=== PATIENT | male | born 1940 | race Caucasian/White ===

== ENCOUNTER → 2017-02-22 | Outpatient (CLI) | payer MEDICARE, OTHER ==
[~2017-02-22] MED LIST: MORP1CAP PO; MULT-65 PO; VITA10007 PO
== END ==
LOC: PLAB 07:23
PROVIDERS: ATTEND Urology
DX: Z85.51 Personal history of malignant neoplasm of bladder (principal)

== ENCOUNTER → 2017-02-23 | Outpatient (CLI) | payer MEDICARE, OTHER | LOC: PLAB 06:38 | PROVIDERS: ATTEND Urology | DX: Z12.5 Encounter for screening for malignant neoplasm of prostate (principal) | CPT/HCPCS: 36415; G0103 ==

== ENCOUNTER → 2017-09-09 | Outpatient (CLI) | payer MEDICARE, OTHER ==
[~2017-09-09] MED LIST changes: +PYRI100T PO; -VITA10007 PO; +VITA500T83 PO
[2017-09-09 10:33] LABS: AUTOMATED NEUTROPHIL # 2.4 TH/MM3 (1.8-7.7); BASOPHIL # 0.1 TH/MM3 (0-0.2); BASOPHIL % 3.5 % (0.0-2.0); EOSINOPHIL # 0.1 TH/MM3 (0-0.4); EOSINOPHIL % 1.6 % (0.0-4.0); HEMOGLOBIN 15.2 GM/DL (13.0-17.0); LYMPH % 31.7 % (9.0-44.0); LYMPHOCYTE # 1.4 TH/MM3 (1.0-4.8); MEAN CELL VOLUME 87.5 FL (80.0-100.0); MEAN CORPUSCULAR HEMOGLOBIN 30.9 PG (27.0-34.0); MEAN CORPUSCULAR HGB CONC 35.3 % (32.0-36.0); MEAN PLATELET VOLUME 7.3 FL (7.0-11.0); MONO % 6.5 % (0.0-8.0); MONOCYTE # 0.3 TH/MM3 (0-0.9); NEUT % 56.7 % (16.0-70.0); PLATELET COUNT 222 TH/MM3 (150-450); RED BLOOD COUNT 4.91 MIL/MM3 (4.50-5.90); RED CELL DISTRIBUTION WIDTH 13.5 % (11.6-17.2); WHITE BLOOD COUNT 4.3 TH/MM3 (4.0-11.0)
[2017-09-09 11:02] LABS: ALBUMIN 4.3 GM/DL (3.4-5.0); AST (GOT) 48 U/L (15-37); BICARBONATE 27.4 MEQ/L (21.0-32.0); BLOOD UREA NITROGEN 16 MG/DL (7-18); CALCIUM 8.9 MG/DL (8.5-10.1); CHLORIDE 108 MEQ/L (98-107); CHOLESTEROL 132 MG/DL (120-200); CREATININE 1.27 MG/DL (0.60-1.30); GLOMERULAR FILTRATION RATE 55 ML/MIN (>89); GLUCOSE,FASTING 102 MG/DL (74-99); SODIUM (NA) 142 MEQ/L (136-145)
[2017-09-09 11:08] LABS: ALKALINE PHOSPHATASE 67 U/L (45-117); ALT (GPT) 48 U/L (12-78); HDL CHOLESTEROL 50.6 MG/DL (40.0-60.0); LDL CHOLESTEROL 71 MG/DL (0-99); LDL CHOLESTEROL DIRECT 83 MG/DL (0-99); TOTAL BILIRUBIN ADULT 0.8 MG/DL (0.2-1.0); TOTAL PROTEIN 7.1 GM/DL (6.4-8.2); TRIGLYCERIDES 52 MG/DL (42-150)
== END ==
LOC: PLAB 07:00
PROVIDERS: ATTEND Family Medicine
DX: I10 Essential (primary) hypertension (principal)
CPT/HCPCS: 36415; 80053; 80061; 83721; 85025

== ENCOUNTER 2018-04-03 20:51 | Observation (INO) ==
--- NOTE | 2018-04-03 21:40 | ED ---
HPI General Chief Complaint: Arrhythmia / Palpitations Stated Complaint: Cardiac/SOB Time Seen by Provider: 04/03/18 21:28 Source: patient Mode of arrival: ambulatory Limitations: no limitations History of Present Illness HPI narrative: 78 YO M with PMH of bladder CA s/p TURBT presents to the ED for evaluation of palpitations. Onset after dinner tonight ~630 PM. The patient states that he has a strange sensation of sudden onset of agitation, fatigue and SOB. He noted that his Fitbit showed a heart rate of 160. He was unsure if the device was malfunctioning so he climbed 14 steps to his bedroom and used his blood pressure monitor. This confirmed the elevated heart rate which prompted the patient to seek evaluation. He denies headaches, dizziness, vision changes, chest pain, cough, abdominal pain, nausea, vomiting, weakness of the extremities. He denies history of blood clots. Denies recent history of immobilization. The patient denies cardiac history. He states that he has not smoked since 1997. He is followed by Dr. Griggs. Related Data Home Medications Medication Instructions Recorded Confirmed temazepam [Restoril] 15 mg PO HS 04/03/18 04/03/18 Allergies Allergy/AdvReac Type Severity Reaction Status Date / Time No Known Allergies Allergy Verified 04/03/18 21:13 Review of Systems ROS: all other systems reviewed are negative [facility] Medical History Medical History History of bladder cancer (Acute) History of melanoma (Acute) Surgical History Surgical History History of back surgery (Acute) Family History Family History Other CAD (coronary artery disease) Social History Social History Substance History: No History of Abuse Second Hand Smoke Exposure: No Smoking Status: Former smoker How Often Do You Have a Drink Containing Alcohol: Monthly or less Recent Travel in [facility] within the Last 8 Weeks: No Recent Out of Country Travel within the Last 8 Weeks: No Immunization History Tetanus Immunization: Unsure Exam Narrative Exam Narrative: GENERAL: Well-nourished, well-developed, nontoxic-appearing white male in no acute distress. SKIN: Focused skin assessment warm, diaphoretic HEAD: Atraumatic. Normocephalic. EYES: Left eye cataract. No scleral icterus. No injection or drainage. ENT: No nasal bleeding or discharge. Mucous membranes pink and moist. NECK: Trachea midline. No JVD. CARDIOVASCULAR: Regular rate and rhythm. No murmur appreciated. RESPIRATORY: No accessory muscle use. Clear to auscultation. Breath sounds equal bilaterally. GASTROINTESTINAL: Abdomen soft, non-tender, nondistended. Hepatic and splenic margins not palpable. MUSCULOSKELETAL: No obvious deformities. No clubbing. No cyanosis. No edema. NEUROLOGICAL: Awake and alert. No obvious cranial nerve deficits. Motor grossly within normal limits. Normal speech. PSYCHIATRIC: Appropriate mood and affect; insight and judgment normal. Course Initial Documented Vital Signs Temperature 98.7 F 04/03/18 21:13 Pulse Rate 160 H 04/03/18 21:13 Respiratory Rate 20 04/03/18 21:13 Blood Pressure 190/109 H 04/03/18 21:13 Pulse Oximetry 97 04/03/18 21:13 Last Documented Vital Signs Temperature 96.3 F L 04/05/18 04:00 Pulse Rate 64 04/05/18 04:02 Respiratory Rate 18 04/05/18 04:00 Blood Pressure 152/79 H 04/05/18 04:00 Pulse Oximetry 94 L 04/05/18 04:00 Medical Decision Making ELISABETH Attestation ELISABETH supervised visit: Yes Attestation: I, Dr. Ace, have reviewed the advance practice practitioner's documentation and am in agreement, met with the patient face to face, made the diagnosis, and the medical decision making was done by me. The patient was initially evaluated by Melissa, the ELISABETH. Please see their complete history and physical. *My assessment and Findings: The patient presents with a history of developing increased sensation of irritability with his family at home just after eating dinner. He reports that he checked his pulse on his foot bed and it was noted to be 160. He confirmed that it was elevated with his blood pressure monitor. He reports having shortness of breath associated with it. He denies ever having a cardiac arrhythmia previously. On arrival, the patient has a confirmed heart rate in the 150s-160s. Shortly after the patient's EKG was done , the patient converted back into a sinus rhythm. The patient's initial EKG appeared to be atrial flutter. During the course of the patient's emergency department visit, the patient's history, examination, and differential diagnosis were reviewed with the patient. The patient was placed on a teletypesetter monitor with oximetry and frequent blood pressure monitoring. The patient had IV access obtained and blood work sent for analysis. The patient's diagnostic studies were reviewed and remarkable for A CBC that is within normal limits, PT PTT within normal limits, d-dimer is 0.29 decreasing the likelihood of pulmonary embolism in this patient with no other significant risk factors. Chemistries remarkable for BUN of 21, glucose 138, initial set of cardiac enzymes are negative, BNP is 84. The patient had a chest x-ray done on arrival that shows no acute cardiopulmonary disease, borderline cardiomegaly and tortuous thoracic aorta, CT scan of the brain shows no acute intracranial abnormality, atrophy and chronic small vessel ischemic changes are noted. The patient's case including history, pertinent physical examination findings, and laboratory studies were discussed with Dr. Clark. It was agreed that the patient would be admitted to the hospitalist service. The patient's results were discussed with the patient, including the plan of care. I explained that further testing and/ or monitoring is indicated based on the patient's history, examination, and/ or laboratory findings. Therefore, I recommended admission for additional evaluation. The patient expressed understanding and was agreeable with this plan. The patient was admitted to the hospital in stable condition and sent to a bed under the care of the [facility] service. MDM Narrative Medical decision making narrative: 78 YO M with PMH of bladder CA s/p TURBT presents to the ED for evaluation of palpitations. Onset after dinner tonight ~ 630 PM. Vitals reviewed. Heart rate 160 on presentation. BP 190/109. EKG initially with rate of 157, a flutter. Once the patient was settled in the exam room heart rate in the 90s 90s, repeat EKG is sinus rhythm with occasional PVCs, LAD. BP 178/87 on recheck. The patient was administered an aspirin. CXR with no acute CP disease. Tortuous aorta and borderline cardiomegaly noted. Remaining lab work and radiological studies pending at this time. The patient is signed out to Dr. Ace at end of shift. Medical Screen Exam Complete: Yes Emergency Medical Condition: Yes Differential Diagnosis Differential Diagnosis: Dysrhythmia versus ACS versus PE versus metabolic derangement versus other Lab Data Result diagrams: 04/03/18 22:18 04/03/18 22:18 Lab Results 1204/03/18 04/03/18 Range/Units 22:18 22:18 22:18 WBC 7.7 (4.0-11.0) th/mm3 RBC 4.98 (4.50-5.90) mil/mm3 Hgb 15.5 (13.0-17.0) gm/dL Hct 44.6 (39.0-51.0) % MCV 89.6 (80.0-100.0) fL MCH 31.1 (27.0-34.0) pg MCHC 34.7 (32.0-36.0) % RDW 13.8 (11.6-17.2) % Plt Count 234 (150-450) th/mm3 MPV 7.6 (7.0-11.0) fL Neut % (Auto) 68.6 (16.0-70.0) % Lymph % (Auto) 21.9 (9.0-44.0) % Snyder % (Auto) 7.4 (0.0-8.0) % Eos % (Auto) 1.1 (0.0-4.0) % Baso % (Auto) 1.0 (0.0-2.0) % Neut # (Auto) 5.3 (1.8-7.7) th/mm3 Lymph # (Auto) 1.7 (1.0-4.8) th/mm3 Snyder # (Auto) 0.6 (0.0-0.9) th/mm3 Eos # (Auto) 0.1 (0.0-0.4) th/mm3 Baso # (Auto) 0.1 (0.0-0.2) th/mm3 WBC Differential . Differential Comment Auto diff final PT (9.8-11.6) sec INR Ratio APTT (23.4-31.7) sec D-Dimer Quant (PE/DVT) 0.29 (0.00-0.50) mg/L FEU Sodium 140 (136-145) meq/L Potassium 3.9 (3.5-5.1) meq/L Chloride 106 (98-107) meq/L Carbon Dioxide 27.4 (21.0-32.0) meq/L Anion Gap 7 (5-15) meq/L BUN 21 H (7-18) mg/dL Creatinine 1.23 (0.60-1.30) mg/dL Estimated GFR 57 L (>89) mL/min Random Glucose 138 H (74-106) mg/dL Calcium 8.5 (8.5-10.1) mg/dL Magnesium (1.5-2.5) mg/dL Total Bilirubin 0.3 (0.2-1.0) mg/dL AST 27 (15-37) U/L ALT 30 (12-78) U/L Alkaline Phosphatase 88 (45-117) U/L Troponin I Less than 0.02 L (0.02-0.05) ng/mL B-Natriuretic Peptide (0-100) pg/mL Total Protein 7.3 (6.4-8.2) g/dL Albumin 4.0 (3.4-5.0) g/dL TSH (0.358-3.740) uIU/mL 04/03/18 04/03/18 04/03/18 Range/Units 22:18 22:18 22:18 WBC (4.0-11.0) th/mm3 RBC (4.50-5.90) mil/mm3 Hgb (13.0-17.0) gm/dL Hct (39.0-51.0) % MCV (80.0-100.0) fL MCH (27.0-34.0) pg MCHC (32.0-36.0) % RDW (11.6-17.2) % Plt Count (150-450) th/mm3 MPV (7.0-11.0) fL Neut % (Auto) (16.0-70.0) % Lymph % (Auto) (9.0-44.0) % Snyder % (Auto) (0.0-8.0) % Eos % (Auto) (0.0-4.0) % Baso % (Auto) (0.0-2.0) % Neut # (Auto) (1.8-7.7) th/mm3 Lymph # (Auto) (1.0-4.8) th/mm3 Snyder # (Auto) (0.0-0.9) th/mm3 Eos # (Auto) (0.0-0.4) th/mm3 Baso # (Auto) (0.0-0.2) th/mm3 WBC Differential Differential Comment PT (9.8-11.6) sec INR Ratio APTT (23.4-31.7) sec D-Dimer Quant (PE/DVT) (0.00-0.50) mg/L FEU Sodium (136-145) meq/L Potassium (3.5-5.1) meq/L Chloride (98-107) meq/L Carbon Dioxide (21.0-32.0) meq/L Anion Gap (5-15) meq/L BUN (7-18) mg/dL Creatinine (0.60-1.30) mg/dL Estimated GFR (>89) mL/min Random Glucose (74-106) mg/dL Calcium (8.5-10.1) mg/dL Magnesium 2.1 (1.5-2.5) mg/dL Total Bilirubin (0.2-1.0) mg/dL AST (15-37) U/L ALT (12-78) U/L Alkaline Phosphatase (45-117) U/L Troponin I (0.02-0.05) ng/mL B-Natriuretic Peptide 84 (0-100) pg/mL Total Protein (6.4-8.2) g/dL Albumin (3.4-5.0) g/dL TSH 2.260 (0.358-3.740) uIU/mL 04/04/18 04/04/18 Range/Units 08:20 08:20 WBC (4.0-11.0) th/mm3 RBC (4.50-5.90) mil/mm3 Hgb (13.0-17.0) gm/dL Hct (39.0-51.0) % MCV (80.0-100.0) fL MCH (27.0-34.0) pg MCHC (32.0-36.0) % RDW (11.6-17.2) % Plt Count (150-450) th/mm3 MPV (7.0-11.0) fL Neut % (Auto) (16.0-70.0) % Lymph % (Auto) (9.0-44.0) % Snyder % (Auto) (0.0-8.0) % Eos % (Auto) (0.0-4.0) % Baso % (Auto) (0.0-2.0) % Neut # (Auto) (1.8-7.7) th/mm3 Lymph # (Auto) (1.0-4.8) th/mm3 Snyder # (Auto) (0.0-0.9) th/mm3 Eos # (Auto) (0.0-0.4) th/mm3 Baso # (Auto) (0.0-0.2) th/mm3 WBC Differential Differential Comment PT 11.4 (9.8-11.6) sec INR 1.1 Ratio APTT 27.5 (23.4-31.7) sec D-Dimer Quant (PE/DVT) (0.00-0.50) mg/L FEU Sodium (136-145) meq/L Potassium (3.5-5.1) meq/L Chloride (98-107) meq/L Carbon Dioxide (21.0-32.0) meq/L Anion Gap (5-15) meq/L BUN (7-18) mg/dL Creatinine (0.60-1.30) mg/dL Estimated GFR (>89) mL/min Random Glucose (74-106) mg/dL Calcium (8.5-10.1) mg/dL Magnesium (1.5-2.5) mg/dL Total Bilirubin (0.2-1.0) mg/dL AST (15-37) U/L ALT (12-78) U/L Alkaline Phosphatase (45-117) U/L Troponin I 0.02 (0.02-0.05) ng/mL B-Natriuretic Peptide (0-100) pg/mL Total Protein (6.4-8.2) g/dL Albumin (3.4-5.0) g/dL TSH (0.358-3.740) uIU/mL Imaging Data Radiologist's impression: Chest X-Ray 04/03/18 21:41 CONCLUSION: No acute cardiopulmonary disease demonstrated. Borderline cardiomegaly and tortuous thoracic aorta. Head CT 04/03/18 21:54 CONCLUSION: 1. No acute intracranial abnormality. 2. Atrophy and chronic small vessel ischemic change. . ECG Data Attestation: I personally reviewed and interpreted this ECG as follows: Interpretation: Rate 157, a flutter. Borderline LAD. Discharge Plan Discharge Disposition Patient Disposition: ED Admit(ED Internal Use Only) Discharge Order Discharge Orders: ED Use Only Admit Order (Routine); Ordered 04/04/18 Ordered By: Birdie Ace Discharge Details Diagnosis: Paroxysmal atrial flutter Physicians Team ED Provider: Birdie Ace ED Midlevel Provider: Melissa Hilton Primary Care Provider: Duran Griggs Attending Provider: Afia Ellington Other Providers: Alfredo Kurtz Discharge Interventions Interventions: ED Discharge Assessment Last Done: 04/04/18 05:02 Status ED Status: Left Department Discharge Information Discharge Date/Time: 04/04/18 05:03
[2018-04-03] MEDS ORDERED: Aspirin 325 MG Tablet PO ONE (21:41)
--- NOTE | 2018-04-03 22:18 | XR ---
EXAM DATE: 04/03/2018 10:13 PM EST AGE/SEX: 78 years / Male INDICATIONS: Short of breath. CLINICAL DATA: This is the patient's initial encounter. Patient reports that signs and symptoms have been present for 1 day and indicates a pain score of 0/10. MEDICAL/SURGICAL HISTORY: None. None. COMPARISON: No prior exams available for comparison. FINDINGS: No infiltrate, effusion or pneumothorax demonstrated. Heart size upper limits of normal. Thoracic aorta is tortuous. CONCLUSION: No acute cardiopulmonary disease demonstrated. Borderline cardiomegaly and tortuous thoracic aorta. Electronically signed by: Izaiah Mensah MD 04/03/2018 10:17 PM EST
[2018-04-03 22:46] LABS: Baso # (Auto) 0.1 th/mm3 (0.0-0.2); Eos # (Auto) 0.1 th/mm3 (0.0-0.4); Eos % (Auto) 1.1 % (0.0-4.0); Hematocrit 44.6 % (39.0-51.0); Hemoglobin 15.5 gm/dL (13.0-17.0); Lymph # (Auto) 1.7 th/mm3 (1.0-4.8); Lymph % (Auto) 21.9 % (9.0-44.0); Mean Corpuscular HGB Conc 34.7 % (32.0-36.0); Mean Corpuscular Hemoglobin 31.1 pg (27.0-34.0); Mean Corpuscular Volume 89.6 fL (80.0-100.0); Mean Platelet Volume 7.6 fL (7.0-11.0); Mono # (Auto) 0.6 th/mm3 (0.0-0.9); Mono % (Auto) 7.4 % (0.0-8.0); Neut # (Auto) 5.3 th/mm3 (1.8-7.7); Neut % (Auto) 68.6 % (16.0-70.0); Platelet Count 234 th/mm3 (150-450); Red Blood Count 4.98 mil/mm3 (4.50-5.90); Red Cell Distribution Width 13.8 % (11.6-17.2); White Blood Count 7.7 th/mm3 (4.0-11.0)
[2018-04-03 22:58] LABS: Alanine Aminotransferase 30 U/L (12-78); Anion Gap 7 meq/L (5-15); Aspartate Aminotransferase 27 U/L (15-37); Blood Urea Nitrogen 21 mg/dL (7-18); Calcium 8.5 mg/dL (8.5-10.1); Carbon Dioxide 27.4 meq/L (21.0-32.0); Chloride 106 meq/L (98-107); Glomerular Filtration Rate 57 mL/min (>89); Glucose,Random 138 mg/dL (74-106); Potassium 3.9 meq/L (3.5-5.1); Sodium 140 meq/L (136-145)
[2018-04-03 23:01] LABS: Alkaline Phosphatase 88 U/L (45-117); Total Protein 7.3 g/dL (6.4-8.2)
--- NOTE | 2018-04-03 23:42 | CT ---
EXAM DATE: 04/03/2018 11:35 PM EST AGE/SEX: 78 years / Male INDICATIONS: Dizziness. CLINICAL DATA: This is the patient's initial encounter. Patient reports that signs and symptoms have been present for 1 day and indicates a pain score of 0/10. MEDICAL/SURGICAL HISTORY: Carcinoma, bladder. None. RADIATION DOSE: 56.35 CTDI (mGy) COMPARISON: No prior exams available for comparison. TECHNIQUE: CT of the head without contrast. Using automated exposure control and adjustment of the mA and/or kV according to patient size, radiation dose was kept as low as reasonably achievable to ob tain optimal diagnostic quality images. DICOM format image data is available electronically for revi ew and comparison. FINDINGS: Cerebrum: Atrophy. Periventricular low attenuation change involving both cerebral hemispheres. The v entricles are normal for age. No evidence of midline shift, mass lesion, hemorrhage or acute infarct ion. No extraaxial fluid collections are seen. Posterior Fossa: The cerebellum and brainstem are intact. The 4th ventricle is midline. The cerebe llopontine angle is unremarkable. Extracranial: The visualized portion of the orbits is intact. Skull: The calvaria is intact. No evidence of skull fracture. CONCLUSION: 1. No acute intracranial abnormality. 2. Atrophy and chronic small vessel ischemic change. . Electronically signed by: Chris Allen MD 04/03/2018 11:41 PM EST
[2018-04-04] MEDS ORDERED: Temazepam 15 MG Capsule PO ONE (02:38)
--- NOTE | 2018-04-04 02:46 | P.HP ---
History of Present Illness Service: [facility] Primary Care Physician: Duran Griggs MD History of Present Illness: 78-year-old male with a past medical history significant for previous bladder cancer and melanoma presents to the emergency department for the evaluation of elevated heart rate. Patient reports around dinnertime last night he began feeling fatigued. He then felt a feeling of anger which she could not explain. He denies any chest pain or shortness of breath. No palpitations. He reports checking his fit bit and his pulse was 169. The patient went to double check his heart rate with his blood pressure machine and noted his blood pressure to be 170/110 with a pulse of 150. He has no history of atrial fibrillation or supraventricular tachycardia. The patient denies any abdominal pain. No nausea/area. No focal neurologic deficits. No fever/chills. Review of Systems All other systems reviewed negative except as stated in HPI PMFSH - History History Provided By: Patient - Medical History Medical History: Medical History (Last Updated 04/04/18 @ 02:42 by Carol Clark MD) History of bladder cancer History of melanoma - Surgical History Surgical History: Surgical History (Last Reviewed 04/04/18 @ 02:42 by Carol Clark MD) History of back surgery - Family History Family History: Family History (Last Updated 04/04/18 @ 02:43 by Carol Clark MD) Other CAD (coronary artery disease) - Social History I have reviewed the patient's Social History: Yes - Tobacco History Second Hand Smoke Exposure: No Smoking Status: Former smoker - Alcohol History How Often Do You Have a Drink Containing Alcohol: Never - Substance Use History Substance History: No History of Abuse - Travel History Recent Travel in the [place] Within the Last 8 Weeks: No Recent Travel Out of the Country Within the Last 8 Weeks: No - Immunization History Tetanus Immunization: Unsure Medications and Allergies Active Medications: Active Medications Enoxaparin Sodium (Lovenox Inj) 100 mg SQ Q12H CODI Sodium Chloride (Ns Flush) 2 ml IV.FLUSH UNSCH PRN PRN Reason: FLUSH AFTER USING IV ACCESS Sodium Chloride (Ns Flush) 2 ml IV.FLUSH PRN PRN PRN Reason: FLUSH AFTER USING IV ACCESS Sodium Chloride (Ns Flush) 2 ml IV.FLUSH BID CODI Temazepam (Restoril) 15 mg PO ONCE ONE Stop: 04/04/18 02:39 Temazepam (Restoril) 15 mg PO HS [facility] Allergies Allergy/AdvReac Type Severity Reaction Status Date / Time No Known Allergies Allergy Verified 04/03/18 21:13 Home Medications Medication Instructions Recorded Confirmed Type temazepam [Restoril] 15 mg PO HS 04/03/18 04/03/18 History Exam Vital signs: Vital Signs 04/03/18 21:13 04/03/18 21:40 04/03/18 21:57 Temperature 98.7 F Pulse Rate 160 H 94 H 90 Respiratory Rate 20 22 22 Blood Pressure 190/109 H 178/87 H 178/87 H Pulse Oximetry 97 95 98 04/03/18 22:17 04/04/18 00:28 04/04/18 01:06 Temperature Pulse Rate 88 82 74 Respiratory Rate 22 20 22 Blood Pressure 165/74 H 150/73 H 146/86 H Pulse Oximetry 96 95 98 04/04/18 02:02 Temperature Pulse Rate 71 Respiratory Rate 18 Blood Pressure 138/66 Pulse Oximetry 98 Intake & Output 04/03/18 04/03/18 04/04/18 06:59 18:59 06:59 Weight 108.862 kg Narrative: Gen.: No acute distress Head: Normocephalic. Atraumatic. EENT: Pupils equal round and reactive to light. Nose without drainage. Airway intact. Throat without injection. Cardiovascular: Regular rate and rhythm. No murmurs, rubs or gallops. Respiratory: Lungs clear to auscultation bilaterally. No wheezes or rhonchi. Abdomen: Soft, nontender, nondistended. No peritoneal signs. Musculoskeletal: No gross deformities. No edema. Skin: No obvious rashes or erythema. Neuro: Sensory and motor grossly intact. Cranial nerves II through XII grossly intact. Results - Labs CBC & Chem 7: 04/03/18 22:18 04/03/18 22:18 Labs: Laboratory Results - last 24 hr 04/03/18 04/03/18 04/03/18 22:18 22:18 22:18 WBC 7.7 RBC 4.98 Hgb 15.5 Hct 44.6 MCV 89.6 MCH 31.1 MCHC 34.7 RDW 13.8 Plt Count 234 MPV 7.6 Neut % (Auto) 68.6 Lymph % (Auto) 21.9 [place] % (Auto) 7.4 Eos % (Auto) 1.1 Baso % (Auto) 1.0 Neut # (Auto) 5.3 Lymph # (Auto) 1.7 [place] # (Auto) 0.6 Eos # (Auto) 0.1 Baso # (Auto) 0.1 WBC Differential . Differential Comment Auto diff final D-Dimer Quant (PE/DVT) 0.29 Sodium 140 Potassium 3.9 Chloride 106 Carbon Dioxide 27.4 Anion Gap 7 BUN 21 H Creatinine 1.23 Estimated GFR 57 L Random Glucose 138 H Calcium 8.5 Total Bilirubin 0.3 AST 27 ALT 30 Alkaline Phosphatase 88 Troponin I Less than 0.02 L B-Natriuretic Peptide Total Protein 7.3 Albumin 4.0 04/03/18 22:18 WBC RBC Hgb Hct MCV MCH MCHC RDW Plt Count MPV Neut % (Auto) Lymph % (Auto) [place] % (Auto) Eos % (Auto) Baso % (Auto) Neut # (Auto) Lymph # (Auto) [place] # (Auto) Eos # (Auto) Baso # (Auto) WBC Differential Differential Comment D-Dimer Quant (PE/DVT) Sodium Potassium Chloride Carbon Dioxide Anion Gap BUN Creatinine Estimated GFR Random Glucose Calcium Total Bilirubin AST ALT Alkaline Phosphatase Troponin I B-Natriuretic Peptide 84 Total Protein Albumin - Imaging Impressions Chest X-Ray 04/03/18 21:41 CONCLUSION: No acute cardiopulmonary disease demonstrated. Borderline cardiomegaly and tortuous thoracic aorta. Head CT 04/03/18 21:54 CONCLUSION: 1. No acute intracranial abnormality. 2. Atrophy and chronic small vessel ischemic change. . Caprini VTE Risk Assessment Caprini VTE Risk Assessment: Moderate/High Risk (score >= 2) Caprini Risk Assessment Model: Point Value = 1 Point Value = 2 Point Value = 3 Point Value = 5 Age 41-60 Minor surgery BMI > 25 kg/m2 Swollen legs Varicose veins or History of unexplained or recurrent spontaneous Oral contraceptives or hormone replacement Sepsis (< 1 month) Serious lung disease, including pneumonia (< 1 month) Abnormal pulmonary function Acute myocardial infarction Congestive heart failure (< 1 month) History of inflammatory bowel disease Medical patient at bed rest Age 61-74 Arthroscopic surgery Major open surgery (> 45 min) Laparoscopic surgery (> 45 min) Malignancy Confined to bed (> 72 hours) Immobilizing plaster cast Central venous access Age >= 75 History of VTE Family history of VTE Factor V Leiden Prothrombin [id number] Lupus anticoagulant Anticardiolipin antibodies Elevated serum homocysteine Heparin-induced thrombocytopenia Other congenital or acquired thrombophilia Stroke (< 1 month) Elective arthroplasty Hip, pelvis, or leg fracture Acute spinal cord injury (< 1 month) Prophylaxis Regimen: Total Risk Factor Score Risk Level Prophylaxis Regimen 0-1 Low Early ambulation 2 Moderate Order ONE of the following: *Sequential Compression Device (SCD) *Heparin 5000 units SQ BID 3-4 Higher Order ONE of the following medications: *Heparin 5000 units SQ TID *Enoxaparin/Lovenox 40 mg SQ daily (WT < 150 kg, CrCl > 30 mL/min) *Enoxaparin/Lovenox 30 mg SQ daily (WT < 150 kg, CrCl > 10-29 mL/min) *Enoxaparin/Lovenox 30 mg SQ BID (WT < 150 kg, CrCl > 30 mL/min) AND/OR *Sequential Compression Device (SCD) 5 or more Highest Order ONE of the following medications: *Heparin 5000 units SQ TID (Preferred with Epidurals) *Enoxaparin/Lovenox 40 mg SQ daily (WT < 150 kg, CrCl > 30 mL/min) *Enoxaparin/Lovenox 30 mg SQ daily (WT < 150 kg, CrCl > 10-29 mL/min) *Enoxaparin/Lovenox 30 mg SQ BID (WT < 150 kg, CrCl > 30 mL/min) AND *Sequential Compression Device (SCD) Assessment and Plan - Plan Assessment/plan: 1. Atrial flutter, new onset EKG shows atrial flutter, personally reviewed, no ST segment elevation or depression Troponin negative Patient denies chest pain or palpitations No previous history of dysrhythmias Magnesium, TSH pending Therapeutic Lovenox Echo pending Cardiology consulted, appreciate assistance FEN Cardiac diet Electrolytes: Monitor and replete as needed Therapeutic Lovenox
[2018-04-04] MEDS: Enoxaparin Inj 100 MG/ML Syringe SQ SCH ×2 (03:16→15:15)
[2018-04-04] MEDS: dilTIAZem CD 180 MG Capsule PO SCH (07:26)
[2018-04-04 09:21] LABS: Activated Partial Thrombo Time 27.5 sec (23.4-31.7); INR 1.1 Ratio; Prothrombin Time 11.4 sec (9.8-11.6)
--- NOTE | 2018-04-04 09:30 | ECG ---
Date Performed: 04/03/2018 Time Performed: 21:55:51 PTAGE: 78 years EKG: Sinus rhythm WITH OCCASIONAL SUPRAVENTRICULAR PREMATURE COMPLEXES MARKED LEFT AXIS DEVIATION MINIMAL VOLTAGE CRIT ERIA FOR LVH, CONSIDER NORMAL VARIANT ABNORMAL ECG Compared to prior electrocardiogram, Sinus rhythm has replaced probable atrial flutter. PREVIOUS TRACING : 02/18/2016 09.54 DOCTOR: Tyler Boston Interpretating Date/Time 04/04/2018 09:28:48
--- NOTE | 2018-04-04 09:31 | ECG ---
Date Performed: 04/03/2018 Time Performed: 21:23:16 PTAGE: 78 years EKG: ATRIAL FLUTTER/TACHYCARDIA WITH RAPID VENTRICULAR RESPONSE BORDERLINE LEFT AXIS DEVIATION N ONSPECIFIC ST & T-WAVE ABNORMALITY ABNORMAL RHYTHM ECG Compared to prior electrocardiogram, Probable atrial flutter has replaced Sinus rhythm . DOCTOR: Tyler Boston Interpretating Date/Time 04/04/2018 09:30:06
--- NOTE | 2018-04-04 09:53 | MB ---
cc: Tyler Boston MD, David W MD DATE: 04/04/2018 HISTORY OF PRESENT ILLNESS: The patient is a pleasant 78-year-old gentleman I am seeing for atrial flutter. The patient has no cardiac history. He, approximately after dinner yesterday, developed anxiety and irritability along with just generalized fatigue. Using his Fitbit and a blood pressure cuff, he noticed his heart rate was ranging between 120 and 180. He sought attention in the [facility] emergency room in [place] where he initially was in atrial flutter with rapid response and subsequently converted to sinus rhythm. He was only given subcutaneous Lovenox, but no other medication. Initial troponin was negative, but no subsequent troponins or clotting parameters were ordered. D-dimer was negative. The patient is completely asymptomatic from a cardiac standpoint. PAST MEDICAL HISTORY: 1. Denies hypertension, diabetes, hyperlipidemia, or thyroid issues. 2. Bladder cancer - distant. 3. Melanoma of the ear. 4. Left eye surgery from trauma with decreased vision there. 5. Lumbar disk surgery. ALLERGIES: NONE. MEDICATIONS PRIOR TO ADMISSION: Temazepam. SOCIAL HISTORY: He is and a distant smoker and rarely drinks. FAMILY HISTORY: Remarkable for father supposedly who from heart disease at 55. REVIEW OF SYSTEMS: Remarkable for sleep issues along with joint and back issues. PHYSICAL EXAMINATION: GENERAL: He is alert and oriented x 3. Afebrile. VITAL SIGNS: Stable with mild hypertension. HEENT: There were no xanthelasma and oropharyngeal mucosa normal. CHEST: Clear. JVD normal. HEART: S1, S2 with a regular rhythm. No murmurs or gallops. ABDOMEN: Benign. EXTREMITIES: Show no cyanosis, clubbing, or edema. Pulses 2/2 throughout without bruits. DIAGNOSTIC DATA: EKG shows a sinus rhythm and is normal now. Head CT shows atrophy and chronic small vessel disease. Chest x-ray normal with mild tortuosity of the aorta and borderline cardiomegaly. Lab work: CBC normal. PT, PTT was not was ordered by myself. Potassium 3.9, creatinine 1.23, glucose 138. Liver transaminases normal. Troponin negative x 1. BNP 84. LDL 71. TSH normal. Total cholesterol 132. PROBLEMS: 1. Atrial flutter with rapid response - converted to sinus rhythm. 2. Borderline hypertension. RECOMMENDATIONS: 1. I have ordered troponin this morning. If it is negative, I would ask that the hospitalist service order a Lexiscan nuclear stress test on medication to assess for coronary artery disease. 2. Echocardiogram to assess ventricular and valvular function. 3. I have started him on sustained release diltiazem. 4. He has gotten subcutaneous Lovenox this morning. I would ask that the hospitalist service start him on Eliquis 5 mg twice a day if his clotting parameters come back normal. The risks/benefits/alternatives of anticoagulation were explained and informed consent obtained. All questions were answered. He has no bleeding issues whatsoever. If workup is negative, I will continue the recommended medication and he will need followup with his PCP and I would like to see him in 2 weeks. All questions were answered. MD JJ Branch/errol , 07:21 AM , 07:28 AM MIKAEL
--- NOTE | 2018-04-04 18:14 | P.PNIM ---
Subjective Interval history: 78yo m admitted with atrial flutter w rvr. pt seen and exmined, hes in nsr, and feeling better, he is going for stress testing today with followup in am. he denies sob or cp, no dizziness or palpitations. Physical Exam Vital signs: Last Vital Signs Temp 97.4 F L 04/04/18 13:43 Pulse 73 04/04/18 13:43 Resp 16 04/04/18 13:43 BP 162/82 H 04/04/18 11:45 Pulse Ox 95 04/04/18 13:43 Intake & Output 04/02/18 04/03/18 04/04/18 04/05/18 06:59 06:59 06:59 06:59 Intake Total 240 / 240 Balance 240 / 240 Weight 110.1 kg wdwd 78yom aaox3 nad heart s1s2 reg no mgc lungs clear no wrr abd soft nondt pos bs ext no edema no calf tenderness ,no cyanosis Results Labs CBC & Chem 7: 04/03/18 22:18 04/03/18 22:18 Imaging Imaging: Impressions Chest X-Ray 04/03/18 21:41 CONCLUSION: No acute cardiopulmonary disease demonstrated. Borderline cardiomegaly and tortuous thoracic aorta. Head CT 04/03/18 21:54 CONCLUSION: 1. No acute intracranial abnormality. 2. Atrophy and chronic small vessel ischemic change. . Assessment and Plan Plan ATRIAL FLUTTER W RVR now nsr, cont cardizem, start eliquis, ischemic eval per cardiology echo pending, possible dc home tomorrow if stress is neg. HTN cont cardizem. Progress Note: Quality VTE Deep Vein Thrombosis/Pulmonary Embolism Present on Admission: No
[2018-04-04] MEDS ORDERED: Temazepam 15 MG Capsule PO SCH (21:00)
[2018-04-05] MEDS: Enoxaparin Inj 100 MG/ML Syringe SQ SCH (03:39)
--- NOTE | 2018-04-05 08:11 | P.PNCA ---
Subjective Interval history: Pt without CV complaints Medications and Allergies Active Medications: Active Medications Diltiazem HCl (Cardizem Cd 24hr) 180 mg PO DAILY [facility] Last Admin: 04/04/18 07:26 Dose: 180 mg Enalaprilat (Vasotec Inj) 1.25 mg IV.PUSH Q6H PRN PRN Reason: BLOOD PRESSURE MANAGEMENT Enoxaparin Sodium (Lovenox Inj) 100 mg SQ Q12H [facility] Last Admin: 04/05/18 03:39 Dose: 100 mg Sodium Chloride (Ns Flush) 2 ml IV.FLUSH PRN PRN PRN Reason: FLUSH AFTER USING IV ACCESS Sodium Chloride (Ns Flush) 2 ml IV.FLUSH BID [facility] Last Admin: 04/04/18 20:26 Dose: 2 ml Temazepam (Restoril) 15 mg PO [facility] Last Admin: 04/04/18 20:26 Dose: 15 mg Allergies Allergy/AdvReac Type Severity Reaction Status Date / Time No Known Allergies Allergy Verified 04/03/18 21:13 Home Medications Medication Instructions Recorded Confirmed Type temazepam [Restoril] 15 mg PO 04/03/18 04/03/18 History Physical Exam Vital signs: Vital Signs 04/04/18 08:39 04/04/18 09:34 04/04/18 11:45 Temperature 96.1 F L Pulse Rate 82 Respiratory Rate 18 Blood Pressure 175/82 H 162/82 H Pulse Oximetry 98 96 04/04/18 12:00 04/04/18 13:43 04/04/18 18:52 Temperature 97.4 F L 97.1 F L Pulse Rate 69 73 75 Respiratory Rate 16 18 Blood Pressure 179/91 H Pulse Oximetry 95 97 04/04/18 20:00 04/04/18 20:15 04/05/18 00:00 Temperature 96.3 F L 96.4 F L Pulse Rate 68 67 Respiratory Rate 19 20 Blood Pressure 163/81 H 148/82 H Pulse Oximetry 95 98 93 L 04/05/18 00:04 04/05/18 04:00 04/05/18 04:02 Temperature 96.3 F L Pulse Rate 68 77 64 Respiratory Rate 18 Blood Pressure 152/79 H Pulse Oximetry 94 L Intake & Output 04/04/18 04/05/18 04/05/18 18:59 06:59 18:59 Intake Total 1200 / 1200 Balance 1200 / 1200 Weight 109.5 kg Intake: Oral 1200 / 1200 Other: # Voids 4 1 Date of Last Bowel Movement 04/04/18 - Constitutional no acute distress - Routine Respiratory Exam Present: CTA bilaterally - Routine Cardiovascular Exam Present: irregularly irregular Comments: no edema Results 04/03/18 22:18 04/03/18 22:18 Cardiac Enzymes 04/03/18 04/03/18 04/04/18 Range/Units 22:18 22:18 08:20 AST 27 (15-37) U/L Troponin I Less than 0.02 L 0.02 (0.02-0.05) ng/mL B-Natriuretic Peptide 84 (0-100) pg/mL Coagulation 04/03/18 04/04/18 Range/Units 22:18 08:20 PT 11.4 (9.8-11.6) sec APTT 27.5 (23.4-31.7) sec B-Natriuretic Peptide 84 (0-100) pg/mL CBC 04/03/18 Range/Units 22:18 WBC 7.7 (4.0-11.0) th/mm3 RBC 4.98 (4.50-5.90) mil/mm3 Hgb 15.5 (13.0-17.0) gm/dL Hct 44.6 (39.0-51.0) % Plt Count 234 (150-450) th/mm3 Neut # (Auto) 5.3 (1.8-7.7) th/mm3 Lymph # (Auto) 1.7 (1.0-4.8) th/mm3 Archer # (Auto) 0.6 (0.0-0.9) th/mm3 Eos # (Auto) 0.1 (0.0-0.4) th/mm3 Baso # (Auto) 0.1 (0.0-0.2) th/mm3 Comprehensive Metabolic Panel 04/03/18 Range/Units 22:18 Sodium 140 (136-145) meq/L Potassium 3.9 (3.5-5.1) meq/L Chloride 106 (98-107) meq/L Carbon Dioxide 27.4 (21.0-32.0) meq/L BUN 21 H (7-18) mg/dL Creatinine 1.23 (0.60-1.30) mg/dL Calcium 8.5 (8.5-10.1) mg/dL AST 27 (15-37) U/L ALT 30 (12-78) U/L Alkaline Phosphatase 88 (45-117) U/L Total Protein 7.3 (6.4-8.2) g/dL Albumin 4.0 (3.4-5.0) g/dL Intake and Output 04/04/18 04/05/18 04/05/18 22:59 06:59 14:59 Intake Total 1200 / 1200 Balance 1200 / 1200 Intake: Oral 1200 / 1200 Other: # Voids 1 Date of Last Bowel Movement 04/04/18 Weight 109.5 kg - Imaging and Cardiology Imaging: Impressions Chest X-Ray 04/03/18 21:41 CONCLUSION: No acute cardiopulmonary disease demonstrated. Borderline cardiomegaly and tortuous thoracic aorta. Head CT 04/03/18 21:54 CONCLUSION: 1. No acute intracranial abnormality. 2. Atrophy and chronic small vessel ischemic change. . Assessment and Plan - Plan new AF - reasonable rate control -agree with eliquis/coumadin for anticoagulation as out patient (after nuc) -ECHO pending Dispo-reasonable for d/c if nuc is not ischemic
[2018-04-05] MEDS ORDERED: Regadenoson Inj 0.4 MG/5 ML Syringe IV.PUSH ONE (08:29)
[2018-04-05] MEDS: dilTIAZem CD 180 MG Capsule PO SCH (09:05)
--- NOTE | 2018-04-05 09:47 | NM ---
EXAM DATE: 04/05/2018 9:22 AM EST AGE/SEX: 78 years / Male INDICATIONS:Atrial Fibrillation. . Anxiety. CLINICAL DATA: This is the patient's initial encounter. Patient reports that signs and symptoms have been present for 1 day and indicates a pain score of 0/10. MEDICAL/SURGICAL HISTORY: Carcinoma, bladder. . Back. COMPARISON: No prior exams available for comparison. DOSE: 32.8 mCi Tc 99m Myoview at rest 31.6 mCi [id number] at stress 0.4 mg Lexiscan STRESS SYMPTOMS: Dyspnea and weird feeling. EJECTION FRACTION: 51 % TECHNIQUE: The patient underwent pharmacologic stress with infusion of prescribed dose using a 2 day protocol because of high BMI. Continuous ECG tracing was monitored during stress. Gated SPECT imag ing was performed after stress and conventional SPECT imaging was performed at rest. The examination was performed on a SPECT/CT scanner, both attenuation and non-corrected datasets were reviewed. FINDINGS: The best perfused myocardium is the anterior lateral wall. There is no significant redistribution sug gest ischemia. There is mild dilatation of ventricular cavity with ejection fraction of 51%. The ejec tion fraction is calculated at 51%. RISK CATEGORY: Low (<1% Annual Motality Rate) CONCLUSION: 1. Negative for stress-induced ischemia. Dilatation of ventricular cavity with ejection fraction of 51%. Correlation suggested. Electronically signed by: Black May MD 04/05/2018 9:46 AM EST
--- NOTE | 2018-04-05 12:44 | P.DS ---
DS: Providers Date of admission: 04/04/18 00:56 Primary care physician: Duran Griggs MD Consults: 04/04/18 02:35 Consult to Cardiology Routine Consulting Provider: Alfredo Kurtz Does the patient have a Technical Support Assistant who follows them?: No Preferred County Auditor:: Mobility Developer Physician Reason for Consultation: new onset a flutter Notified:: Service Spoke with:: Denia Date Notified:: 04/04/18 Time Notified:: 02:50 Ordering Provider: ANISH Brief History from admission: 78-year-old male with a past medical history significant for previous bladder cancer and melanoma presents to the emergency department for the evaluation of elevated heart rate. Patient reports around dinnertime last night he began feeling fatigued. He then felt a feeling of anger which she could not explain. He denies any chest pain or shortness of breath. No palpitations. He reports checking his fit bit and his pulse was 169. The patient went to double check his heart rate with his blood pressure machine and noted his blood pressure to be 170/110 with a pulse of 150. He has no history of atrial fibrillation or supraventricular tachycardia. The patient denies any abdominal pain. No nausea/area. No focal neurologic deficits. No fever/chills. DS: Summary Patient was admitted and seen by cardiology. He converted to nsr and was started on cardizem, and sent for nuclear stress testing which was negative for ischemia. He was stable and started on eliquis. Discharged home with instructions to follow up with cardiology as instructed. Time Spent with Patient Total time spent providing and/or coordinating discharge services: Greater than 30 minutes Status at Discharge Functional status at discharge: independent ambulation Overall status at discharge: patient is back to baseline Quality: VTE Deep Vein Thrombosis/Pulmonary Embolism Present on Admission: No Exam Narrative Exam Narrative: wdwn w 78yo m aaox3 pleasant heart s1s2 reg lungs clear no wrr abd soft nondt pos bs ext no edema no clubbing no cyanosis no calf tenderness Results Impressions ITS Impressions Chest X-Ray 04/03/18 21:41 CONCLUSION: No acute cardiopulmonary disease demonstrated. Borderline cardiomegaly and tortuous thoracic aorta. Head CT 04/03/18 21:54 CONCLUSION: 1. No acute intracranial abnormality. 2. Atrophy and chronic small vessel ischemic change. . Myocardial Perfusion Scan Nuc Med 04/04/18 00:00 CONCLUSION: 1. Negative for stress-induced ischemia. Dilatation of ventricular cavity with ejection fraction of 51%. Correlation suggested. Discharge Plan Discharge Disposition Patient Disposition: 01 Discharge Home Discharge Condition Condition: Good Discharge Order Discharge Orders: Discharge Order (Routine); Ordered 04/05/18 Ordered By: Afia Ellington Physicians Team ED Provider: Birdie Ace ED Midlevel Provider: Melissa Hilton Primary Care Provider: Duran Griggs Attending Provider: Afia Ellington Other Providers: Alfredo Kurtz Rxs /Orders / Referrals /Forms Prescriptions: New diltiazem HCl [Cardizem CD] 180 mg Capsule,Extended Release 24hr 180 mg PO DAILY Qty: 30 RF: 0 apixaban [Eliquis] 5 mg tablet 5 mg PO Q12H Qty: 60 RF: 0 Continue temazepam [Restoril] 15 mg Capsule 15 mg PO HS RF: 0 Referrals: Duran Griggs MD [Primary Care Provider] - See Instructions ( Please call the physician's office to book the appointment to be seen within [2-3d].) Alfredo Kurtz MD [Physician] - See Instructions ( Please call the physician's office to book the appointment to be seen within [2-3d].) Discharge Instructions Patient Printed Instructions: Atrial Flutter (DC), Chest Pain (DC) Status ED Status: Left Department Discharge Information Discharge Date/Time: 04/05/18 13:11
--- NOTE | 2018-04-05 14:56 | ECHRPT ---
Indication: Atrial Fib and Flutter CONCLUSIONS Normal left ventricular size. Wall thickness is measured at the upper limits of normal. The left ventricular systolic function is normal with an estimated ejection fraction in the range of 55-60%. Mildly dilated proximal ascending aorta. Trace aortic valve regurgitation. There is trace tricuspid valve regurgitation. The estimated pulmonary arterial pressure is 36 mmHg. BP: / HR: Rhythm: MEASUREMENTS (Male / Female) Normal Values Technical Quality:Technically difficult study 2D ECHO LV Diastolic Diameter PLAX 5.2 cm 4.2 - 5.9 / 3.9 - 5.3 cm LV Systolic Diameter PLAX 3.1 cm IVS Diastolic Thickness 1.1 cm 0.6 - 1.0 / 0.6 - 0.9 cm LVPW Diastolic Thickness 1.2 cm 0.6 - 1.0 / 0.6 - 0.9 cm LV Relative Wall Thickness 0.5 RV Internal Dim ED PLAX 3.6 cm LVOT Diameter 2.4 cm Aortic Root Diameter 3.9 cm LA Systolic Diameter LX 3.9 cm 3.0 - 4.0 / 2.7 - 3.8 cm DOPPLER AV Peak Velocity 126.0 cm/s AV Peak Gradient 6.4 mmHg AI Peak Velocity 392.0 cm/s AI Peak Gradient 61.5 mmHg AI Pressure Half Time 689.0 ms LVOT Peak Velocity 114.0 cm/s LVOT Peak Gradient 5.2 mmHg AV Area Cont Eq pk 4.1 cm Mitral E Point Velocity 50.8 cm/s Mitral A Point Velocity 98.7 cm/s Mitral E to A Ratio 0.5 LV E' Lateral Velocity 8.2 cm/s Mitral E to LV E' Lateral Ratio 6.2 LV E' Septal Velocity 6.7 cm/s Mitral E to LV E' Septal Ratio 7.5 TR Peak Velocity 257.0 cm/s TR Peak Gradient 26.4 mmHg Right Atrial Pressure 10.0 mmHg Pulmonary Artery Systolic Pressu 36.4 mmHg Right Ventricular Systolic Press 36.4 mmHg PV Peak Velocity 85.5 cm/s PV Peak Gradient 2.9 mmHg FINDINGS LEFT VENTRICLE Normal left ventricular size. Wall thickness is measured at the upper limits of normal. The left ventricular systolic function is normal with an estimated ejection fraction in the range of 55-60%. RIGHT VENTRICLE Normal right ventricular size and systolic function. LEFT ATRIUM The left atrial size is upper limits of normal. RIGHT ATRIUM The right atrial size is normal. ATRIAL SEPTUM Normal atrial septal thickness. AORTA Mildly dilated proximal ascending aorta. MITRAL VALVE Structurally normal mitral valve. AORTIC VALVE Trileaflet aortic valve. Trace aortic valve regurgitation. TRICUSPID VALVE There is trace tricuspid valve regurgitation. The estimated pulmonary arterial pressure is 36 mmHg. PULMONARY VALVE The pulmonary valve is not well visualized. VESSELS The inferior vena cava was not well visualized. PERICARDIUM No pericardial effusion. Abdon Park MD, FACC (Electronically Signed) Final Date:05 April 2018 14:55
== END 2018-04-05 13:11 | disposition home or self-care (01) ==
LOC: NEDA 20:51 → NEPC 20:51 → NEDA 04-04 05:03 → PH3 04-04 05:17
PROVIDERS: ADMIT Internal Medicine; ATTEND Internal Medicine
DX: Z87.891 Personal history of nicotine dependence; Z85.51 Personal history of malignant neoplasm of bladder; I10 Essential (primary) hypertension; H26.9 Unspecified cataract; Z82.49 Family history of ischemic heart disease and other diseases of the circulatory system; F41.9 Anxiety disorder, unspecified; I48.92 Unspecified atrial flutter; Z85.820 Personal history of malignant melanoma of skin; R94.31 Abnormal electrocardiogram [ECG] [EKG]